=== PATIENT | male | born 1990 | race Hispanic/Latino ===

== ENCOUNTER 2019-08-06 11:18 | Emergency (ER) | payer MEDICAID, OTHER ==
[2019-08-06] MEDS ORDERED: Adacel (T-DAP) 0.5 ML SYRINGE ONE (11:39)
== END 2019-08-06 12:46 | disposition home or self-care (01) ==
LOC: ERS 11:18
DX: S81.851A Open bite, right lower leg, initial encounter (principal); S81.831A Puncture wound without foreign body, right lower leg, initial encounter; F25.9 Schizoaffective disorder, unspecified; F20.9 Schizophrenia, unspecified; F22 Delusional disorders; W54.0XXA Bitten by dog, initial encounter
CPT/HCPCS: 90471; 90715